=== PATIENT | male | born 1975 | race Caucasian/White ===

== ENCOUNTER 2020-06-20 14:08 | Emergency (ER) | payer MEDICAID ==
[~2020-06-20] VITALS: Ht 172.7 cm; Wt 75.0 kg
[2020-06-20 14:30] VITALS: BP 129/87
[2020-06-20] MEDS ORDERED: NALO4SPR BOTHNSTRLS (14:45)
== END 2020-06-20 15:30 | disposition left against medical advice (07) ==
LOC: ER 14:08
DX: T50.7X1A Poisoning by analeptics and opioid receptor antagonists, accidental (unintentional), initial encounter (principal); X58.XXXA Exposure to other specified factors, initial encounter; F11.10 Opioid abuse, uncomplicated
CPT/HCPCS: 93005; 99283